=== PATIENT | male | born 1975 | race Caucasian/White ===

== ENCOUNTER 2017-10-21 14:16 | Day surgery (SDC) | payer OTHER ==
[2017-10-21] MEDS ORDERED: FENTAnyl 50 MCG/ML VIAL (16:28)
[2017-10-21] MEDS ORDERED: MIDAZOLAM 1 MG/ML 2 ML INJ ×2 (16:28)
== END 2017-10-21 17:36 | disposition home or self-care (01) ==
LOC: GIL 14:16
DX: Z12.11 Encounter for screening for malignant neoplasm of colon (principal); Z86.010 Personal history of colon polyps
CPT/HCPCS: 45380